=== PATIENT | female | born 1950 | race Caucasian/White ===

== ENCOUNTER 2019-10-30 00:51 | Day surgery (SDC) | payer MEDICARE, SELFPAY ==
[2019-10-21 13:26] VITALS: BMI 34.0
[2019-10-30 08:30] VITALS: BP 166/70; PULSE 52; RESP 18; TEMP 36.6; O2SAT 95
[2019-10-30] MEDS: LACTATED RINGERS 1,000 ML 150 ML IV CONT (08:48)
--- NOTE | 2019-10-30 09:01 | WPDANESEPPF ---
Anes - Initial Pre Proc Eval Procedure: Operation Date: 10/30/19 09:30 Proposed Procedures p Screening Colonoscopy - Jason Caldwell MD Date/Time: 10/30/19 09:01 Surgeon: Jason Caldwell MD Pre Op Diagnosis: Neoplasm Screening Patient Data Age: 68 Gender: F Height: 1.67 m Weight: 90.9 kg Last Vital Signs Temp 36.6 C 10/30/19 08:30 Pulse 52 L 10/30/19 08:30 Resp 18 10/30/19 08:30 BP 166/70 H 10/30/19 08:30 Pulse Ox 95 10/30/19 08:30 Allergies Allergy/AdvReac Type Severity Reaction Status Date / Time No Known Allergies Allergy Unverified 10/30/19 08:38 Home Medications Medication Instructions Recorded Confirmed Type atenolol 50 mg PO BID 10/21/19 10/30/19 History atorvastatin 10 mg PO DAILY 10/21/19 10/30/19 History omeprazole 20 mg PO DAILY 10/21/19 10/30/19 History triamterene-hydrochlorothiazid 1 tablet PO DAILY 10/21/19 10/30/19 History Patient hx anesthesia problems: none Family hx anesthesia problems: none PMFSH Past Medical History Medical History (Updated 10/30/19 @ 09:02 by Orestes Sanabria MD) Bladder cancer Hemorrhoids HTN (hypertension) Hypercholesterolemia Kidney stones, calcium oxalate Obesity Anes - Eval Final PreProcedure Day of Procedure 10/30/19 09:01 Patient weight: obese Heart: regular rate and rhythm Lungs: clear to auscultation and normal air movement Airway: Mallampati scale class II Neurological: alert and oriented Last oral intake: >/= 8 hours ASA classification: III Emergent: no Anesthetic plan: proceed Anesthesia type and monitoring: general GIVS Informed Consent: The patient's anesthetic plan and its attendant risks and benefits were discussed with the patient/family/POA. Questions were solicited and answers provided to the satisfaction of the patient/family/POA.
--- NOTE | 2019-10-30 09:07 | WPDGICN ---
Assessment and Plan Additional Plan This is a 68-year-old white female patient seen in evaluation at the request of Dr. Cornelius Rayo. Patient presents for screening colonoscopy. Her current weight appetite bowel movements are normal. She denies any blood in her stools. She denies abdominal pain. Her weight has remained stable. Her bowel habits are regular. Family history is noncontributory. Past medical history is significant for bladder cancer. Hypertension. Hypercholesterolemia. Current medications include omeprazole 20 mg p.o. daily. Hydrochlorothiazide. Atorvastatin. And a 10 a long period She has no stated drug allergies. Physical exam reveals her to be alert. Vital signs stable. HEENT exam unremarkable. She is anicteric. Lungs are clear to auscultation and percussion. Heart is without murmur or extra sounds. Abdominal exam bowel sounds are present soft nontender with no organomegaly. Digital external rectal exam is normal. Impression 1. Neoplasia screening. This is advised because of her age. Plan is for screening colonoscopy. GI Consult Note Consult date/time: 10/30/19 09:07 HPI: Aisha Aranda is a 68 year old female [facility] Past Medical History Medical History (Updated 10/30/19 @ 09:02 by Orestes Sanabria MD) Bladder cancer Hemorrhoids HTN (hypertension) Hypercholesterolemia Kidney stones, calcium oxalate Obesity Meds Home Medications and Allergies Home Medications Medication Instructions Recorded Confirmed Type atenolol 50 mg PO BID 10/21/19 10/30/19 History atorvastatin 10 mg PO DAILY 10/21/19 10/30/19 History omeprazole 20 mg PO DAILY 10/21/19 10/30/19 History triamterene-hydrochlorothiazid 1 tablet PO DAILY 10/21/19 10/30/19 History Allergies Allergy/AdvReac Type Severity Reaction Status Date / Time No Known Allergies Allergy Unverified 10/30/19 08:38 Vital Signs Vital Signs - 24 hr 10/30/19 08:30 Temperature 36.6 C Pulse Rate 52 L Respiratory Rate 18 Blood Pressure 166/70 H Pulse Oximetry 95
[2019-10-30 09:38] VITALS: BP 122/61; PULSE 63; RESP 18; O2SAT 98
[2019-10-30 09:48] VITALS: BP 154/81; PULSE 62; RESP 21; O2SAT 98
[2019-10-30 09:58] VITALS: BP 144/77; PULSE 54; RESP 22; O2SAT 98
== END 2019-10-30 10:22 | disposition home or self-care (01) ==
PROVIDERS: PCP Emergency Medicine; Visit Provider Internal Medicine Gastroenterology
PROC: 0DJD8ZZ Inspection of Lower Intestinal Tract, Via Natural or Artificial Opening Endoscopic (ICD-10-PCS; CPT 45378; principal; 2019-10-30 09:30)
DX: Z12.11 Encounter for screening for malignant neoplasm of colon (principal); D12.5 Benign neoplasm of sigmoid colon; K57.30 Diverticulosis of large intestine without perforation or abscess without bleeding; K64.8 Other hemorrhoids; I10 Essential (primary) hypertension; E78.00 Pure hypercholesterolemia, unspecified; Z85.51 Personal history of malignant neoplasm of bladder; E66.9 Obesity, unspecified; Z68.32 Body mass index [BMI] 32.0-32.9, adult
CPT/HCPCS: 45385; 88305; J2704; J7120

== ENCOUNTER 2023-02-16 15:36 | Emergency (ER) | payer MEDICARE, SELFPAY ==
--- NOTE | ~2023-02-16 | XR_ITS ---
EXAM: XR toe 1st RT min 2V DATE: 02/16/2023 16:15 HISTORY: trauma today dropper heavy object on toe . COMPARISON: None available. FINDINGS: Decreased mineralization. Comminuted, minimally displaced fracture of the right first dist al phalanx. No lytic or blastic lesion. Joint spaces are maintained. No erosion or periosteal change. Soft tissues within normal limits. IMPRESSION: Comminuted, minimally displaced fracture of the right first distal phalanx. Reviewed, dictated and finalized at location K.
[2023-02-16 15:47] VITALS: BP 113/48; PULSE 50; RESP 16; TEMP 36.1; O2SAT 100
--- NOTE | 2023-02-16 16:05 | ED.LOWEXIN ---
HPI - Extremity Injury (Lower) General Chief Complaint: Extremity Injury, Lower Stated Complaint: toe injury Time Seen by Provider: 02/16/23 16:01 Source: patient and RN notes reviewed Mode of arrival: ambulatory Limitations: no limitations History of Present Illness HPI Narrative: Patient presents today complaining of right 1st to injury. She dropped a piece of plywood on her toe approximately 1 hour prior to arrival. She currently rates her pain 10/10 and has tried no [id number] treatment prior to arrival. Related Data Home Medications Medication Instructions Recorded Confirmed atenolol 50 mg tablet 50 mg PO BID 10/21/19 02/16/23 atorvastatin 10 mg tablet 10 mg PO DAILY 10/21/19 02/16/23 omeprazole 20 mg capsule,delayed 20 mg PO DAILY 10/21/19 02/16/23 release triamterene 37.5 1 tablet PO DAILY 10/21/19 02/16/23 mg-hydrochlorothiazide 25 mg tablet lisinopril 10 mg tablet 10 mg PO DAILY 02/16/23 02/16/23 Allergies Allergy/AdvReac Type Severity Reaction Status Date / Time No Known Allergies Allergy Verified 02/16/23 15:56 Review of Systems Review of Systems: CONSTITUTIONAL: Denies body aches, fever, chills, or sweats. EYES: Denies visual changes, redness, or discharge. ENT: Denies rhinorrhea, congestion, sore throat, or otalgia. CARDIOVASCULAR: Denies chest pain, palpitations, or edema. RESPIRATORY: Denies cough or dyspnea. GASTROINTESTINAL: Denies abdominal pain, nausea, vomiting, or diarrhea. GENITOURINARY: Denies dysuria or hematuria. SKIN: Denies rash, itching, or wounds. MUSCULOSKELETAL: Denies back pain, or myalgia.+ right great toe injury NEUROLOGIC: Denies headache, numbness, tingling, or weakness. PSYCH: Denies depression or anxiety. [facility] Past Medical History Medical History Bladder cancer Hemorrhoids HTN (hypertension) Hypercholesterolemia Kidney stones, calcium oxalate Obesity Comments At time of signature, I have reviewed and agree with nursing past medical, surgical, social and family history unless otherwise noted. Please see nursing chart for further information. There is no relevant family history pertinent to the presenting complaint Exam Narrative: GENERAL: Well-appearing, well-nourished, and in no acute distress. HEAD: Normocephalic, atraumatic. EYES: EOMI. No redness or drainage. Conjunctivae normal. ENT: Mucous membranes pink and moist. NECK: Normal AROM. CHEST: No respiratory distress. . EXTREMITIES: Right great toe: Ecchymosis to the base of the nail with small superficial abrasion. Tenderness to the distal phalanx with mild edema. Moderate subungual hematoma. Full range of motion of the toe with some mild increased pain. Distal sensation intact. Capillary refill normal. SKIN: Warm, dry, no rash. Capillary refill normal. Normal skin turgor. NEURO: No focal deficits. Alert and oriented x3. Gait steady. PSYCH: Normal affect. No signs of depression or anxiety. Course Course Emergency Course: Attempted nail trephination of the subungual hematoma with electrocautery without result.. Level of Care: Express Care Visit Vital Signs Vital signs: Vital Signs Temperature 96.9 F L 02/16/23 15:47 Pulse Rate 50 L 02/16/23 15:47 Respiratory Rate 16 02/16/23 15:47 Blood Pressure 113/48 L 02/16/23 15:47 Pulse Oximetry 100 02/16/23 15:47 Oxygen Delivery Room Air 02/16/23 15:47 Temperature 96.9 F L 02/16/23 15:47 Pulse Rate 50 L 02/16/23 15:47 Respiratory Rate 16 02/16/23 15:47 Blood Pressure 113/48 L 02/16/23 15:47 Pulse Oximetry 100 02/16/23 15:47 Oxygen Delivery Room Air 02/16/23 15:47 Reviewed MDM - Extremity Injury (Lower) MDM Narrative Medical decision making narrative: X-ray shows comminuted fracture of the distal phalanx. Unsuccessful nail trephination. Patient placed in a postop shoe with ge taped by Ayudarum. Instructed patient to fo
[2023-02-16] MEDS: TETANUS/DIPHTHERIA TOXOIDS ADSORB 0.5 ML VIAL (*BKC) IM (16:34)
== END 2023-02-16 16:50 | disposition home or self-care (01) ==
PROVIDERS: Emergency Provider Nurse Practitioner; PCP Nurse Practitioner Family
DX: S92.421A Displaced fracture of distal phalanx of right great toe, initial encounter for closed fracture (principal); S90.211A Contusion of right great toe with damage to nail, initial encounter; W20.8XXA Other cause of strike by thrown, projected or falling object, initial encounter; Z23 Encounter for immunization; I10 Essential (primary) hypertension; E78.00 Pure hypercholesterolemia, unspecified; E66.9 Obesity, unspecified; Z68.34 Body mass index [BMI] 34.0-34.9, adult
CPT/HCPCS: 73660; 90471; 90714; 99214; G0463

== ENCOUNTER 2023-03-07 09:17 | Outpatient (CLI) | payer MEDICARE, SELFPAY ==
[2023-03-07 10:15] LABS: Alanine Aminotransferase 18 U/L (6-35); Aspartate Amino Transferase 28 U/L (14-36)
== END 2023-03-07 09:18 | disposition home or self-care (01) ==
LOC: ANHLAB 09:19
PROVIDERS: PCP Nurse Practitioner Family; Visit Provider Podiatrist Foot & Ankle Surgery
DX: B35.1 Tinea unguium (principal)
CPT/HCPCS: 36415; 84450; 84460

== ENCOUNTER 2023-06-10 11:00 | Outpatient (CLI) | payer MEDICARE, SELFPAY ==
[2023-06-10 12:14] LABS: Alanine Aminotransferase 17 U/L (6-35); Aspartate Amino Transferase 31 U/L (14-36)
== END 2023-06-10 11:01 | disposition home or self-care (01) ==
LOC: ANHLAB 11:02
PROVIDERS: PCP Nurse Practitioner Family; Visit Provider Podiatrist Foot & Ankle Surgery
DX: B35.1 Tinea unguium (principal)
CPT/HCPCS: 36415; 84450; 84460

== ENCOUNTER 2024-03-03 09:31 | Outpatient (CLI) | payer MEDICARE, SELFPAY ==
--- NOTE | ~2024-03-03 | MR_ITS ---
EXAMINATION: MR abdomen wo/w con DATE: 03/03/2024 10:47 INDICATION: Left kidney mass. TECHNIQUE: Magnetic resonance imaging (MRI) of the abdomen was performed without and with 20 mL Multi Joe intravenous contrast. COMPARISON: Abdomen MRI 04/30/2018 FINDINGS: There are cysts in the liver measuring up to 1.7 cm. The gallbladder, spleen, pancreas, and adrenal g lands are normal. There are hemorrhagic cysts in the kidneys measuring up to 10 mm on the right. Ther e are simple cysts in the kidneys measuring up to 14 mm on the left. There are no dilated loops of mo wel. There are no pathologically enlarged lymph nodes. There is no free intraperitoneal fluid. IMPRESSION: 1. Benign cysts in the kidneys. Reviewed, dictated and finalized at location A.
== END 2024-03-03 09:32 | disposition home or self-care (01) ==
LOC: ANHIMG 09:32
PROVIDERS: PCP Nurse Practitioner Family; Visit Provider Urology
DX: N28.1 Cyst of kidney, acquired (principal)
CPT/HCPCS: 74183; A9577

== ENCOUNTER 2025-03-04 12:08 | Outpatient (CLI) | payer MEDICARE, SELFPAY ==
--- NOTE | ~2025-03-04 | XR_ITS ---
XR abdomen/kub 1V 03/04/2025 12:29 Indication: Kidney stones Procedure: KUB Comparison: No prior studies for comparison. Findings: Bowel gas pattern nonobstructive. There are multiple pelvic phleboliths. Cannot exclude dis uriah ureteral stone. No definite calcifications overlying the kidneys, although they are obscured by b owel content. Moderate lumbar spondylosis. Nonobstructive bowel gas pattern. Impression: 1: No acute abdominal abnormality. Reviewed, dictated and finalized at location A. Impression: 1: No acute abdominal abnormality.
== END 2025-03-04 12:09 | disposition home or self-care (01) ==
PROVIDERS: PCP Nurse Practitioner Family; Visit Provider Urology
DX: N20.0 Calculus of kidney (principal); Z85.51 Personal history of malignant neoplasm of bladder
CPT/HCPCS: 74018